=== PATIENT | female | born 1985 | race Caucasian/White ===

== ENCOUNTER 2020-10-01 17:00 | Emergency (ER) | payer OTHER ==
[~2020-10-01] VITALS: Ht 167.6 cm; Wt 68.0 kg
[~2020-10-01 17:00] MED LIST: CLONAZEPAM1 MG PO; ESTRADIOL1 MG PO; HYDROCODON-ACE1 EAC3 PO; MOTRIN800 MG PO; NORCO 7.5-3251 EACH PO; OMEPRAZOLE20 MG PO; VYVANSE20 MG PO; XANAX0.5 MG PO; ZOFRAN4 MG PO; ZYRTEC10 M3 PO
--- OUTSIDE RECORDS SUMMARY | 2020-10-01 17:04 | XMS ---
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 Jacob has no Care Guidelines for this patient. Shailesh VISIT COUNT (12 MO.) 1 [place] TOTAL 1 NOTE: Visits indicate total known visits. ED/UCC VISIT TRACKING (12 MO.) 10/01/2020 17:01 [place] [facility] [place] TYPE: Emergency COMPLAINT: - POSS ALLERGIC REACTION INPATIENT VISIT TRACKING (12 MO.) No inpatient visits to display in this time frame [email or web address]
[2020-10-01] MEDS ORDERED: BUPRENORPHINE HC2 MG SL (17:22)
[2020-10-01] MEDS ORDERED: ADDERALL 10 MG10 MG PO (17:23)
== END 2020-10-01 18:52 | disposition home or self-care (01) ==
LOC: ED 17:00
DX: R53.83 Other fatigue (principal); M79.10 Myalgia, unspecified site; T50.B95A Adverse effect of other viral vaccines, initial encounter; F17.200 Nicotine dependence, unspecified, uncomplicated; Z79.899 Other long term (current) drug therapy
CPT/HCPCS: 99283